=== PATIENT | male | born 1975 | race Caucasian/White ===

== ENCOUNTER 2024-03-14 09:11 | Emergency (ER) | payer SELFPAY ==
[2024-03-14 09:16] VITALS: BP 166/95; PULSE 75; RESP 18; TEMP 98; BMI 26.6
[2024-03-14] MEDS ORDERED: IBUPROFEN 600 MG TABLET (FP) PO ONE (10:19)
[2024-03-14] MEDS: IBUPROFEN 600 MG TABLET (FP) PO ONE (10:20)
== END 2024-03-14 10:28 | disposition home or self-care (01) ==
LOC: JERFT 09:11
DX: S63.92XA Sprain of unspecified part of left wrist and hand, initial encounter (principal); W01.0XXA Fall on same level from slipping, tripping and stumbling without subsequent striking against object, initial encounter
CPT/HCPCS: 73110-TC-LT-FY; 73130-TC-LT-FY; 99283-25